=== PATIENT | female | born 1995 | race Caucasian/White ===

== ENCOUNTER 2021-03-14 10:30 | Emergency (ER) | payer SELFPAY ==
[~2021-03-14] VITALS: Ht 167.6 cm; Wt 128.2 kg
[2021-03-14 11:29] LABS: BASO # 0.02 (0.02-0.10); EOS # 0.19 (0.04-0.40); EOS % 4.4 % (1.0-5.0); HEMATOCRIT 43.1 % (37.0-47.0); HEMOGLOBIN 13.9 g/dL (12.5-16.0); LYMPH# 2.23 (1.50-4.00); MEAN CELL VOLUME 96 fl (78-100); MEAN CORPUSCULAR HEMOGLOBIN 31 pg (27-31); MEAN CORPUSCULAR HGB CONC 32 g/dL (33-37); MONO # 0.36 (0.20-0.80); NEU # 1.49 (1.40-6.50); PLATELET COUNT 240 K/mm3 (130-400); RED BLOOD COUNT 4.47 M/mm3 (4.10-5.30); RED CELL DISTRIBUTION WIDTH 13.5 % (11.5-14.5); WHITE BLOOD COUNT 4.3 K/mm3 (4.8-10.8)
[2021-03-14 11:32] LABS: ALBUMIN 4.1 g/dL (3.5-5.0)
[2021-03-14 11:33] LABS: CALCIUM 8.8 mg/dL (8.3-10.5)
[2021-03-14 11:35] LABS: TOTAL PROTEIN 7.4 g/dL (6.4-8.3)
[2021-03-14 11:36] LABS: TOTAL BILIRUBIN 0.5 mg/dL (0.2-1.2)
[2021-03-14 13:12] VITALS: BP 119/66
== END 2021-03-14 13:17 | disposition home or self-care (01) ==
LOC: ED 10:30 → EDBD 11:00 → ED 11:00
PROVIDERS: Nurse Practitioner
DX: R09.1 Pleurisy (principal); F17.200 Nicotine dependence, unspecified, uncomplicated; Z20.822 Contact with and (suspected) exposure to COVID-19
CPT/HCPCS: J1885

== ENCOUNTER 2021-06-15 01:04 | Emergency (ER) | payer SELFPAY ==
[~2021-06-15] VITALS: Ht 170.2 cm; Wt 128.2 kg
[2021-06-15] MEDS ORDERED: CEPHALEXIN500 M1 PO (03:57)
[2021-06-15 04:06] VITALS: BP 117/61
== END 2021-06-15 04:06 | disposition home or self-care (01) ==
LOC: ED 01:04
DX: S09.90XA Unspecified injury of head, initial encounter (principal); S01.511A Laceration without foreign body of lip, initial encounter; M54.9 Dorsalgia, unspecified; F17.210 Nicotine dependence, cigarettes, uncomplicated; Y04.0XXA Assault by unarmed brawl or fight, initial encounter
CPT/HCPCS: 90715

== ENCOUNTER 2022-01-11 21:43 | Emergency (ER) | payer SELFPAY ==
[~2022-01-11] VITALS: Ht 157.5 cm; Wt 90.9 kg
[~2022-01-11 21:43] MED LIST: CEPHALEXIN500 M1 PO
[2022-01-11 22:57] LABS: BASO # 0.05 K/mm3 (0.02-0.10); EOS # 0.28 K/mm3 (0.04-0.40); EOS % 5.8 % (1.0-5.0); HEMATOCRIT 39.8 % (37.0-47.0); HEMOGLOBIN 13.3 g/dL (12.5-16.0); LYMPH# 2.44 K/mm3 (1.50-4.00); MEAN CELL VOLUME 96 fl (78-100); MEAN CORPUSCULAR HEMOGLOBIN 32 pg (27-31); MEAN CORPUSCULAR HGB CONC 33 g/dL (33-37); MEAN PLATELET VOLUME 10.1 fl (7.4-10.4); MONO # 0.38 K/mm3 (0.20-0.80); NEU # 1.67 K/mm3 (1.40-6.50); PLATELET COUNT 225 K/mm3 (130-400); RED BLOOD COUNT 4.16 M/mm3 (4.10-5.30); RED CELL DISTRIBUTION WIDTH 13.8 % (11.5-14.5); WHITE BLOOD COUNT 4.8 K/mm3 (4.8-10.8)
[2022-01-11 23:01] LABS: ALBUMIN 4.2 g/dL (3.5-5.0); POTASSIUM 3.8 mmol/L (3.5-5.1); SODIUM 139 mmol/L (136-145)
[2022-01-11 23:02] LABS: CALCIUM 9.5 mg/dL (8.3-10.5)
[2022-01-11 23:03] LABS: GLUCOSE 89 mg/dL (65-105); TOTAL PROTEIN 7.3 g/dL (6.4-8.3)
[2022-01-11 23:04] LABS: CARBON DIOXIDE 19 mmol/L (22-29)
[2022-01-11 23:05] LABS: TOTAL BILIRUBIN 0.6 mg/dL (0.2-1.2)
[2022-01-11 23:08] LABS: AST-SGOT 11 U/L (5-34)
[2022-01-11 23:10] LABS: ALCOHOL IN-HOUSE < 10 mg/dL (<10); ALT/SGPT 11 U/L (0-55)
[2022-01-11 23:11] LABS: ACETAMINOPHEN < 1 ug/mL
[2022-01-11 23:15] LABS: URINE APPEARANCE CLOUDY; URINE BILIRUBIN NEGATIVE (NEGATIVE); URINE COLOR YELLOW; URINE GLUCOSE NEGATIVE (NEGATIVE); URINE KETONE 1+ (NEGATIVE); URINE PROTEIN(semi-quant) TRACE (NEGATIVE)
[2022-01-11 23:16] LABS: URINE BLOOD TRACE (NEGATIVE); URINE LEUKOCYTE ESTERASE 2+ (NEGATIVE); URINE MUCUS PRESENT (NOT PRESENT); URINE NITRATE POSITIVE (NEGATIVE); URINE UROBILINOGEN NORMAL (NORMAL); URINE WBC >50 /hpf (0-3)
[2022-01-12 02:00] VITALS: BP 129/73
== END 2022-01-12 07:44 | disposition home or self-care (01) ==
LOC: ED 21:43
PROVIDERS: Nurse Practitioner
DX: F41.9 Anxiety disorder, unspecified (principal); F22 Delusional disorders; F19.90 Other psychoactive substance use, unspecified, uncomplicated; F17.210 Nicotine dependence, cigarettes, uncomplicated; Z20.822 Contact with and (suspected) exposure to COVID-19; Z28.310 Unvaccinated for COVID-19

== ENCOUNTER 2022-03-04 13:37 | Emergency (ER) | payer SELFPAY ==
[2022-03-04 14:13] LABS: HEMATOCRIT 36.1 % (37.0-47.0); HEMOGLOBIN 12.1 g/dL (12.5-16.0); MEAN CELL VOLUME 95 fl (78-100); MEAN CORPUSCULAR HEMOGLOBIN 32 pg (27-31); MEAN CORPUSCULAR HGB CONC 34 g/dL (33-37); MEAN PLATELET VOLUME 9.9 fl (7.4-10.4); PLATELET COUNT 219 K/mm3 (130-400); RED BLOOD COUNT 3.81 M/mm3 (4.10-5.30); WHITE BLOOD COUNT 2.9 K/mm3 (4.8-10.8)
[2022-03-04 14:25] LABS: POTASSIUM 4.1 mmol/L (3.5-5.1)
[2022-03-04 14:26] LABS: CALCIUM 9.3 mg/dL (8.3-10.5)
[2022-03-04 14:45] LABS: BAND 2 % (0-10); LYMPHOCYTE 6 % (20-51); MONOCYTE 10 % (3-10); NEUTROPHILS 79 % (42-75)
[2022-03-04 14:47] LABS: TOTAL BILIRUBIN 0.4 mg/dL (0.2-1.2)
[2022-03-04 15:31] VITALS: BP 108/81
== END 2022-03-04 15:32 | disposition home or self-care (01) ==
LOC: ED 13:37
PROVIDERS: Family Medicine
DX: O98.511 Other viral diseases complicating pregnancy, first trimester (principal); U07.1 COVID-19; E87.1 Hypo-osmolality and hyponatremia; Z3A.01 Less than 8 weeks gestation of pregnancy; Z28.310 Unvaccinated for COVID-19

== ENCOUNTER 2022-03-24 09:05 | Emergency (ER) | payer MEDICAID ==
[~2022-03-24] VITALS: Ht 172.7 cm; Wt 90.9 kg
[2022-03-24] MEDS ORDERED: ASPIRIN 81M81 MG/TA2 PO (09:39)
[2022-03-24] MEDS ORDERED: PRENATABS FA1 TAB PO (09:40)
[2022-03-24 10:13] LABS: URINE APPEARANCE CLOUDY; URINE COLOR BLOODY; URINE GLUCOSE NEGATIVE (NEGATIVE); URINE PROTEIN(semi-quant) 3+ (NEGATIVE)
[2022-03-24 10:14] LABS: URINE BILIRUBIN NEGATIVE (NEGATIVE); URINE BLOOD 250 ery/uL (NEGATIVE); URINE KETONE NEGATIVE (NEGATIVE); URINE LEUKOCYTE ESTERASE 2+ (NEGATIVE); URINE MUCUS PRESENT (NOT PRESENT); URINE NITRATE NEGATIVE (NEGATIVE); URINE UROBILINOGEN NORMAL (NORMAL); URINE WBC >50 /hpf (0-3)
[2022-03-24] MEDS ORDERED: CEPHALEXIN500 M1 PO (10:26)
[2022-03-24 10:37] VITALS: BP 120/78
== END 2022-03-24 10:37 | disposition home or self-care (01) ==
LOC: ED 09:05
PROVIDERS: Family Medicine
DX: O23.41 Unspecified infection of urinary tract in pregnancy, first trimester (principal); N39.0 Urinary tract infection, site not specified; O99.331 Smoking (tobacco) complicating pregnancy, first trimester; F17.200 Nicotine dependence, unspecified, uncomplicated; Z28.310 Unvaccinated for COVID-19; Z86.16 Personal history of COVID-19; Z3A.00 Weeks of gestation of pregnancy not specified
CPT/HCPCS: J0696

== ENCOUNTER 2022-04-15 16:25 | Emergency (ER) | payer MEDICAID ==
[~2022-04-15 16:25] MED LIST changes: +ASPIRIN 81M81 MG/TA2 PO; +PRENATABS FA1 TAB PO
[2022-04-15 16:30] VITALS: BP 122/67
== END 2022-04-15 17:12 | disposition home or self-care (01) ==
LOC: ED 16:25
DX: O99.711 Diseases of the skin and subcutaneous tissue complicating pregnancy, first trimester (principal); L23.7 Allergic contact dermatitis due to plants, except food; Z28.310 Unvaccinated for COVID-19; Z3A.10 10 weeks gestation of pregnancy

== ENCOUNTER 2022-05-09 11:07 | Emergency (ER) | payer MEDICAID ==
[2022-05-09 11:15] VITALS: BP 135/76
[2022-05-09 11:47] LABS: URINE APPEARANCE CLOUDY; URINE BILIRUBIN NEGATIVE (NEGATIVE); URINE BLOOD NEGATIVE (NEGATIVE); URINE COLOR DARK YELLOW; URINE GLUCOSE NEGATIVE (NEGATIVE); URINE KETONE NEGATIVE (NEGATIVE); URINE LEUKOCYTE ESTERASE TRACE (NEGATIVE); URINE NITRATE NEGATIVE (NEGATIVE); URINE PROTEIN(semi-quant) TRACE (NEGATIVE); URINE UROBILINOGEN NORMAL (NORMAL)
[2022-05-09 11:48] LABS: URINE MUCUS PRESENT (NOT PRESENT)
[2022-05-09] MEDS ORDERED: MONISTAT 745 GM VG (11:54)
== END 2022-05-09 12:03 | disposition home or self-care (01) ==
LOC: ED 11:07
PROVIDERS: Nurse Practitioner Family
DX: O23.592 Infection of other part of genital tract in pregnancy, second trimester (principal); Z28.310 Unvaccinated for COVID-19; Z3A.14 14 weeks gestation of pregnancy

== ENCOUNTER 2022-09-06 18:37 | Emergency (ER) | payer MEDICAID ==
[~2022-09-06 18:37] MED LIST changes: +CEFDINIR300 MG PO; +MONISTAT 745 GM VG; +ONDANSETRON HYDR4 MG PO
[2022-09-06 19:50] VITALS: BP 128/80
== END 2022-09-06 19:51 | disposition home or self-care (01) ==
LOC: ED 18:37
DX: O99.891 Other specified diseases and conditions complicating pregnancy (principal); R05.9 Cough, unspecified; R09.81 Nasal congestion; O99.213 Obesity complicating pregnancy, third trimester; E66.9 Obesity, unspecified; Z3A.31 31 weeks gestation of pregnancy; Z28.310 Unvaccinated for COVID-19; Z20.822 Contact with and (suspected) exposure to COVID-19